=== PATIENT | male | born 1995 | race Hispanic/Latino ===

== ENCOUNTER 2022-03-31 22:34 | Emergency (ER) | payer OTHER, SELFPAY ==
--- OUTSIDE RECORDS SUMMARY | 2022-03-31 22:38 | XMS REPORT | Continuity of Care Document ---
:1995 Author Organization [facility] t Address [address] [place] [address] Care Team Providers Name Role Phone Pcp, Patient Does Not Have A Primary Care Physician [id number] KATHE SALES Attending Clinician Unavailable Kathe Lopez Attending Clinician Unknown, Attending Attending Clinician Unavailable YASMANY PHAM Attending Clinician Unavailable NIDIA BANEGAS Attending Clinician Unavailable Nidia Banegas MD Attending Clinician ANEUDY HERNANDEZ Attending Clinician Unavailable Aneudy Perkins Attending Clinician Doctor Unassigned, [place] Attending Clinician Unavailable Payers Payer Name Policy Type Policy Number Effective Date Expiration Date S sophia [employer] [id number] 2016 00:00:00 Problems Condition Condition Condition Status Onset Resolution Last Treating Co mments Source Name Details Category Date Date Treatment Clinician Date No known No known Disease Unive rs active active ity of problems problems [facility] Allergies, Adverse Reactions, Alerts Allergy Allergy Status Severity Reaction(s) Onset Inactive Treating Comm ents Source Name Type Date Date Clinician NO KNOWN Drug Active Univers ALLERGIE Class ity of S [facility] Social History Social Habit Start Date Stop Date Quantity Comments Source Exposure to 2022-03-18 2022-03-28 Not sure [facility]-CoV-2 00:00:00 17:41:00 [facility] [place] Alcohol intake 2022-03-28 2022-03-28 0 /d [facility] 00:00:00 00:00:00 [facility] Tobacco use and 2022-03-08 2022-03-08 Smokeless tobacco Un iversity of exposure 00:00:00 00:00:00 non-user [facility] Sex Assigned At [birth year] Universit y of 00:00:00 00:00:00 [facility] Smoking Status Start Date Stop Date Source Never smoked tobacco [facility] Medications Ordered Filled Start Stop Current Ordering Indication Dosage Frequency Signature Comments Components Source Medication Medication Date Date Medication? Clinician (SIG) Name Name levoFLOXaci 2021-04- Yes [id number] 500mg Take 1 Univers n 500 mg 05-29 tablet by ity o f tablet 00:00: 05:59 mouth in [place] 00 :00 the [facility] for 10 days. cefTRIAXone 2021-04- No [id number] 500mg Univers (ROCEPHIN) 05-09 ity of injection 20:15: 19:33 [place] 500 mg 00 :00 [facility] cefTRIAXone 2021-04- No [id number] 500mg 500 mg, Univers (ROCEPHIN) 05-09 Intramuscu it y of injection 20:15: 19:33 [place], ONCE, [place] 500 mg 00 :00 1 dose, On [facility] Branch 03/08/22 at 1415, JOHN
Re ason for Anti-Infec tive: Empiric Therapy for Suspected Infection< br>Empiric Therapy Site: Urine
D uration of therapy: 5 days doxycycline 2021-04- Yes [id number] 100mg Take 1 Univers hyclate 100 05-09 tablet by it y of mg tablet 00:00: 05:59 mouth in [place] 00 :00 the [facility] and 1 tablet in the evening. Do all this for 10 days. amoxicillin 2021- No [id number] 1{tbl} Take 1 Univers -clavulanat 10-29 tablet by it y of e 00:00: 04:59 mouth in [place] (AUGMENTIN) 00 :00 [facility] 875-125 mg morning Branch per tablet and 1 tablet in the evening. Do all this for 5 days. cephALEXin 2021- No [id number] 500mg Take 1 Univers (KEFLEX) 10-06 [id number] capsule by it y of 500 mg 00:00: 04:59 mouth 4 [place] capsule 00 :00 (four) Medical times Branch daily for 7 days. Immunizations Ordered Immunization Filled Immunization Date Status Commen ts Source Name Name Meningococcal 2016-12-12 Completed University of Polysaccharide 00:00:00 [place] [facility] (groups A, C, Y and Branc h W-135) conjugate vaccine (MCV4P) Meningococcal 2016-12-12 Completed University of Polysaccharide 00:00:00 [place] [facility]ny (groups A, C, Y and Branc h W-135) conjugate vaccine (MCV4P) Meningococcal 2016-12-12 Completed University of Polysaccharide 00:00:00 [place] Med[facility] (groups A, C, Y and Branc h W-135) conjugate vaccine (MCV4P) Meningococcal 2016-12-12 Completed University of Polysaccharide 00:00:00 [place] Med[facility]ny (groups A, C, Y and Branc h W-135) conjugate vaccine (MCV4P) Vital Signs Vital Name Observation Time Observation Value Comments Source Systolic blood 2022-03-28 23:48:00 151 mm[Hg] Univer sity of [place] Diastolic blood 2022-03-28 23:48:00 97 mm[Hg] Unive rsity [facility] Heart rate 2022-03-28 23:46:00 97 /min [facility] Body temperature 2022-03-28 23:46:00 36.5 Sherri [facility] Respiratory rate 2022-03-28 23:46:00 14 /min [facility] Body height 2022-03-28 23:46:00 185.4 cm [facility] Body weight 2022-03-28 23:46:00 88.179 kg [facility] BMI 2022-03-28 23:46:00 25.65 kg/m2 [facility] Oxygen saturation in 2022-03-28 23:46:00 98 /min [facility] Arterial blood by [facility] Pulse oximetry Branch Systolic blood 2022-03-08 19:14:00 155 mm[Hg] Univer sity of [place] Diastolic blood 2022-03-08 19:14:00 96 [facility]Hg[facility] 2022-03-08 19:13:00 68 /min [facility] [place] [facility] Body temperature 2022-03-08 19:13:00 37.11 Sherri [facility] [place] [facility] Respiratory rate 2022-03-08 19:13:00 16 /min [facility] [place] [facility] Body height 2022-03-08 19:13:00 185.4 cm [facility] [place] [facility] Body weight 2022-03-08 19:13:00 89.948 kg [facility] [place] [facility] BMI 2022-03-08 19:13:00 26.16 kg/m2 [facility] [place] [facility] Oxygen saturation in 2022-03-08 19:13:00 100 /min University of Arterial blood by [facility] Pulse oximetry Branch Systolic blood 2021-10-29 21:03:00 151 mm[Hg] Univer sity of [facility] [place] [facility] Diastolic blood 2021-10-29 21:03:00 84 mm[Hg] Unive rsity of [facility] [place] [facility] Heart rate 2021-10-29 21:03:00 74 /min [facility] [place] [facility] Body temperature 2021-10-29 21:03:00 37.17 Sherri [facility] [place] [facility] Respiratory rate 2021-10-29 21:03:00 19 /min [facility] [place] [facility] Body height 2021-10-29 21:03:00 185.4 cm [facility] [place] [facility] Body weight 2021-10-29 21:03:00 92.897 kg [facility] [place] [facility] BMI 2021-10-29 21:03:00 27.02 kg/m2 [facility] [place] [facility] Oxygen saturation in 2021-10-29 21:03:00 98 /min University of Arterial blood by [facility] Pulse oximetry Branch Systolic blood 2021-10-06 19:59:00 111 mm[Hg] Univer sity of [facility] [place] [facility] Diastolic blood 2021-10-06 19:59:00 71 mm[Hg] Unive rsity of [facility] [place] [facility] Heart rate 2021-10-06 19:59:00 82 /min [facility] [place] [facility] Body temperature 2021-10-06 19:59:00 36.72 Sherri [facility] Respiratory rate 2021-10-06 19:59:00 18 /min [facility] Body height 2021-10-06 19:59:00 185.4 cm [facility] Body weight 2021-10-06 19:59:00 92.987 kg [facility] BMI 2021-10-06 19:59:00 27.05 kg/m2 [facility] Oxygen saturation in 2021-10-06 19:59:00 98 /min [facility] Arterial blood by [facility] Pulse oximetry [place] Procedures Procedure Date / Time Performed Performing Clinician Sourc e POCT URINALYSIS 2022-03-08 19:20:00 Allyson Ash [facility] Encounters Start End Encounter Admission Attending Care Care Encounter Source Date/Time Date/Time Type Type Clinicians Facility Department ID 2022-03-28 2022-03-28 [id number] Univers 17:20:00 18:08:59 KATHE [facility] 2022-03-28 2022-03-28 Urgent Kathe Sales [facility] 1..[id number] Univers 17:20:00 18:08:59 Care Unknown, Attending HEALTH [id number] itmeghan slaughter [place] [id number] [place] ODES[place]?BLEA [id number] Fl [address] MEDICAL OFFICE BUILDING 2022-03-15 2022-03-15 [id number] Univers 09:40:00 09:40:00 YASMANY [facility] 2022-03-08 2022-03-08 [facility] [id number] Univers 13:00:00 13:40:59 NIDIA [facility] 2022-03-08 2022-03-08 Urgent Nidia Banegas [facility] [id number] Univers 13:00:00 13:20:00 Care Unknown, Attending [facility] 350..13.10 ity of [place] [id number] [place]?BLEA [id number] [address] MEDICAL OFFICE [facility] 2021-10-29 2021-10-29 Outpatient R [facility] [id number] Univers 16:00:00 16:26:10 ANEUDY palencia [facility] 2021-10-29 2021-10-[address] [facility] [id number] Univers 16:00:00 16:26:10 Care [facility] [id number] ity of [place] [id number] [place]?BLEA [id number] [address] OFFICE [facility] 2021-10-06 2021-10-[address] [facility] [id number] Univers 15:00:00 15:25:36 Care [facility] [id number] ity of [place] [id number] [place]?BLEA [id number] [address] OFFICE [facility] 2021-10-06 2021-10-06 Outpatient R [facility] [id number] Univers 15:00:00 15:25:36 ANEUDY palencia [facility] 2021-10-06 2021-10-06 Orders Doctor YAMILET [id number] Univers 00:00:00 00:00:00 Only Unassigned, LISA [id number] ity of [place] [facility] [id number] [place] [id number] [address] Results Test Description Test Time Test Comments Results Result Comments Source POCT URINALYSIS W SPECIFIC GRAVITY 2022-03-08 19:21:00 Test Item Value Reference Range Interpretation Comme nts POCT U SP GRAV (test code = 3255) 1.000 mg/dl 1.005-1.025 A POCT PH U (test code = 3254) 7 mg/dl 5-8 POCT U LEUK EST (test code = 3263) Neg Negative - Negative POCT U NIT (test code = 3262) Neg Negative - Negative POCT U PROT (test code = 3259) Neg Negative - Negative POCT U GLU (test code = 3256) Neg Negative - Negative POCT U KETONE (test code = 3258) Neg Negative - Negative POCT U UROBILI (test code = 3260) Neg 0.2-1 POCT U BILI (test code = 3261) Neg Negative - Negative POCT U BLD (test code = 3257) Neg Negative - Negative POCT U COLOR (test code = 3266) Yellow POCT U APPEAR (test code = 3267) Clear Lab Interpretation (test code = 92900-0) Abnormal [facility]
--- NOTE | 2022-04-01 00:04 | EDPHYS ---
Physician Documentation [facility] Name: Rudy Daily Age: 26 yrs Sex: Male : 1995 Arrival Date: 03/31/2022 Time: 22:38 Bed 8 Private MD: ED Physician Ottoniel Newman HPI: 03/31 22:53 This 26 yrs old Male presents to ER via Ambulatory with complaints of jmm Testicular Pain. 22:53 The patient presents with scrotal pain. Onset: The symptoms/episode began/occurred jmm gradually, 1 month(s) ago. Is a 26-year-old male with no chronic medical conditions presents emerged part with complaints of scrotal pain beginning approximately a month ago. Patient states he has visited urgent care twice. Patient states he was prescribed antibiotics but unable to keep them down due to nausea. Patient was given psych prescription for levofloxacin patient has been able to hold down but still continues to have right scrotal pain and was advised to go to the ED for further evaluation.. Historical: - Allergies: 23:04 No Known Allergies; as6 - Home Meds: 23:04 None [Active]; as6 - PMHx: 23:04 None; as6 - PSHx: 23:04 None; as6 - Immunization history:: Client reports having NOT received the Covid vaccine. - Social history:: Smoking status: Patient reports the use of cigarette tobacco products. ROS: 22:53 Constitutional: Negative for fever, chills, and weight loss, Cardiovascular: Negative jmm for chest pain, palpitations, and edema, Respiratory: Negative for shortness of breath, cough, wheezing, and pleuritic chest pain. 22:53 : Positive for pelvic pain, testicular pain 22:53 All other systems are negative. Exam: 22:53 Constitutional: This is a well developed, well nourished patient who is awake, alert, jmm and in no acute distress. Head/Face: atraumatic. Eyes: EOMI, no conjunctival erythema appreciated ENT: Moist Mucus Membranes Neck: Trachea midline, Supple Chest/axilla: Normal chest wall appearance and motion. Cardiovascular: Regular rate and rhythm. No edema appreciated Respiratory: Normal respirations, no respiratory distress appreciated Abdomen/GI: Non distended Back: Normal ROM Skin: General appearance color normal 22:53 Neuro: Awake and alert Psych: Behavior is normal, Mood is normal, Patient is cooperative and pleasant 22:53 : Male external genitalia: tenderness, of the right testicle is noted, that is mild. Vital Signs: 23:02 BP 158 / 94; Pulse 95; Resp 20 S; Temp 98.2(O); Pulse Ox 100% on R/A; Weight 88.45 kg as6 (R); Height 6 ft. 1 in. (185.42 cm) (R); Pain 8/10; 04/01 00:13 BP 141 / 88; Pulse 81; Resp 18 S; Pulse Ox 100% on R/A; as6 03/31 23:02 Body Mass Index 25.73 (88.45 kg, 185.42 cm) as6 MDM: 03/31 22:53 Patient medically screened. [facility] 04/01 00:02 Data reviewed: vital signs, nurses notes. Counseling: I had a detailed discussion with amber the patient and/or guardian regarding: the historical points, exam findings, and any diagnostic results supporting the discharge/admit diagnosis, radiology results, the need for outpatient follow up, to return to the emergency department if symptoms worsen or persist or if there are any questions or concerns that arise at home. ED course: Ultrasounds negative. Patient encouraged to continue oral antibiotics and otherwise advised follow-up with urology or PCP. Patient otherwise given strict return precautions. Patient understood agrees plan of care.. 03/31 22:54 Order name: US Scrotum Testicles jose luis Administered Medications: No medications were administered Disposition Summary: 04/01/22 00:03 Discharge Ordered Location: Home [facility] Condition: Stable [facility] Diagnosis - Scrotal pain [facility] Followup: [facility] - With: Shaun Luna MD - When: 2 - 3 days - Reason: Recheck today's complaints, Continuance of care, Re-evaluation by your physician Discharge Instructions: - Discharge Summary Sheet [facility] - Testicular Self-Exam [facility] Forms: - Medication Reconciliation Form [facility] - Thank You Letter [facility] - Antibiotic Education [facility] - Prescription Opioid Use [facility] Signatures: Dispatcher [employer] EDMS Alexis Smart PA PA jmm Slawson, Ashby, RN RN as6
--- NOTE | 2022-04-01 00:04 | ER ---
Nurse's Notes [facility] Name: Rudy Daily Age: 26 yrs Sex: Male : 1995 Arrival Date: 03/31/2022 Time: 22:38 Bed 8 Private MD: Diagnosis: Scrotal pain Presentation: 03/31 22:46 Acuity: CLAUDIA 2 tw5 22:59 Chief complaint: Patient states: I have been having testicular pain since a month ago. ha1 I went to an urgent clinic and was tested for STIs but everything was negative. four days ago I went back to the urgent care because I was still feeling testicular pain and got antibiotics. Coronavirus screen: Vaccine status: Patient reports being unvaccinated. Ebola Screen: No symptoms or risks identified at this time. 22:59 Method Of Arrival: Ambulatory ha1 23:02 Coronavirus screen: At this time, the client does not indicate any symptoms associated as6 with coronavirus-19. Ebola Screen: No symptoms or risks identified at this time. Initial Sepsis Screen: Does the patient meet any 2 criteria? No. Patient's initial sepsis screen is negative. Does the patient have a suspected source of infection? No. Patient's initial sepsis screen is negative. Risk Assessment: Do you want to hurt yourself or someone else? Patient reports no desire to harm self or others. Onset of symptoms is unknown. 23:02 Method Of Arrival: Ambulatory as6 Historical: - Allergies: 23:04 No Known Allergies; as6 - Home Meds: 23:04 None [Active]; as6 - PMHx: 23:04 None; as6 - PSHx: 23:04 None; as6 - Immunization history:: Client reports having NOT received the Covid vaccine. - Social history:: Smoking status: Patient reports the use of cigarette tobacco products. Screenin/30 00:14 [facility] ED Fall Risk Assessment (Adult) Score/Fall Risk Level 0 - 2 = Low Risk. Abuse as6 screen: Denies threats or abuse. Denies injuries from another. Nutritional screening: No deficits noted. Tuberculosis screening: No symptoms or risk factors identified. Assessment: 00:13 General: Appears uncomfortable, Behavior is calm, cooperative. Pain: Complains of pain as6 in right testicle. Neuro: Level of Consciousness is awake, alert, obeys commands, Oriented to person, place, time, situation. Cardiovascular: Capillary refill < 3 seconds Patient's skin is warm and dry. Respiratory: Respiratory effort is even, unlabored. : Reports pain in right testicle. Vital Signs: 03/31 23:02 BP 158 / 94; Pulse 95; Resp 20 S; Temp 98.2(O); Pulse Ox 100% on R/A; Weight 88.45 kg as6 (R); Height 6 ft. 1 in. (185.42 cm) (R); Pain 8/10; 04/01 00:13 BP 141 / 88; Pulse 81; Resp 18 S; Pulse Ox 100% on R/A; as6 03/31 23:02 Body Mass Index 25.73 (88.45 kg, 185.42 cm) as6 ED Course: 03/31 22:38 Patient arrived in ED. 22:42 Alexis Smart PA is PHCP. [facility] 22:42 Ottoniel Newman MD is Attending Physician. [facility] 22:46 Triage completed. tw5 23:04 Arm band placed on. as6 23:04 Bed in low position. Call light in reach. as6 23:25 Jaziel Tatum, RN is Primary Nurse. as6 04/01 00:03 Shaun Luna MD is Referral Physician. [facility] 00:08 Scrotum Testicles In Process Unspecified. EDMS 00:14 No provider procedures requiring assistance completed. Patient did not have IV access as6 during this emergency room visit. Administered Medications: No medications were administered Medication: 00:14 VIS not applicable for this client. as6 Outcome: 00:03 Discharge ordered by . jm 00:14 Discharged to home ambulatory. as6 00:14 Condition: stable 00:14 Discharge instructions given to patient, Instructed on discharge instructions, follow up and referral plans. 00:14 Demonstrated understanding of instructions, follow-up care. 00:14 Patient left the ED. as6 Signatures: Dispatcher [employer] EDMS Alexis Smart PA PA Ria Ji Tiffany tw5 Jaziel Tatum, RN RN as6 Malia Larsen RN RN ha1 Corrections: (The following items were deleted from the chart) 03/31 23:05 23:02 Onset of symptoms was March 31, 2022 as6 as6 23:25 23:02 BP 158 / 94; Pulse 20bpm; Resp 95bpm; Spontaneous; Pulse Ox 100% RA; Temp 98.2F as6 Oral; 88.45 kg Reported; Height 6 ft. 1 in. Reported; BMI: 25.7; Pain 8/10; as6
[2022-04-01 00:20] VITALS: TEMP 98.2; O2SAT 100
[2022-04-01 00:22] VITALS: BP 141/88
--- NOTE | 2022-04-01 15:01 | RAD REPORT ---
EXAM DESCRIPTION: US - Scrotum Testicles - 04/01/2022 12:02 am CLINICAL HISTORY: Right testicular pain TECHNIQUE: Real-time ultrasound of the scrotum with color Doppler and image documentation. COMPARISON: No relevant prior studies available. FINDINGS: Right testicle: The right testis measures 4.2 x 2.3 x 3.2 cm. Homogeneous echotexture. No torsion. Left testicle: The left testis measures 4.2 x 2.1 x 3.6 cm. Homogeneous echotexture. No torsion . Epididymides: Unremarkable. Scrotum: Unremarkable. IMPRESSION: Normal testicular flow bilaterally without sonographic evidence for torsion. Electronically signed by: Heena Vieyra MD 04/01/2022 12:35 AM ECHOCARDIOGRAPH TECH Due to temporary technical issues with the PACS/Fluency reporting system, reports are being signed by the in house radiologists without review as a courtesy to insure prompt reporting. The interpreting radiologist is fully responsible for the content of the report.
== END 2022-04-01 00:14 | disposition home or self-care (01) ==
LOC: ER 22:34
DX: N50.82 Scrotal pain (principal)
CPT/HCPCS: 76870; 99283

== ENCOUNTER 2022-09-27 14:11 | Emergency (ER) | payer OTHER, SELFPAY ==
--- OUTSIDE RECORDS SUMMARY | 2022-09-27 14:15 | XMS REPORT | Continuity of Care Document ---
:1995 Author Organization [facility] t Address [address] [place] [address] [address] [place] [address] Care Team Providers Name Role Phone KATLYN FIGUEROA Primary Care Physician Unavailable KATLYN FIGUEROA Attending Clinician Unavailable Katlyn Colón Attending Clinician NIDIA ROMERO Attending Clinician Unavailable Nidia Romero MD Attending Clinician Unknown, Attending Attending Clinician Unavailable Lab, Ang - Db Attending Clinician Unavailable PANKAJ GORMAN Attending Clinician Unavailable Pankaj Gorman MD Attending Clinician KATHE PASTOR Attending Clinician Unavailable Kathe Lopez Attending Clinician YASMANY PHAM Attending Clinician Unavailable ANEUDY HERNANDEZ Attending Clinician Unavailable Aneudy Perkins Attending Clinician Doctor Unassigned, [place] Attending Clinician Unavailable PANKAJ GORMAN Admitting Clinician Unavailable KATLYN FIGUEROA Admitting Clinician Unavailable Payers Payer Name Policy Type Policy Number Effective Date Expiration Date S [facility] [id number] 2022 SELECT 00:00:00 Problems Condition Condition Condition Status Onset Resolution Last Treating Co mments Source Name Details Category Date Date Treatment Clinician Date Anxiety Anxiety Disease Active Univers and and 3-10 [place] Elevated Elevated Disease Active Unive rs blood blood 3-10 ity of pressure pressure 00:00: [place] reading in reading in 00 Id dical office office Branch without without diagnosis diagnosis of of hypertensi hypertensi on on Cloudy Cloudy Disease Active Univers urine urine 3-10 ity of 00:: Medical Branch 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 cyst 3-10 ity of :: [facility] Pain in Pain in Disease Active Univers right right 1-09 ity of testicle testicle 00:: [facility] Branch Epididymit Epididymit Disease Active U nivers is is 1-09 ity of 00:: [place] [facility] No known No known Disease Unive rs active active ity of problems problems [facility] Allergies, Adverse Reactions, Alerts Allergy Allergy Status Severity Reaction(s) Onset Inactive Treating Comm ents Source Name Type Date Date Clinician NO KNOWN Drug Active Univers ALLERGIE Class ity of S [facility] Social History Social Habit Start Date Stop Date Quantity Comments Source Exposure to 2022-06-11 2022-06-21 Not sure [facility] SARS-CoV-2 00:00:00 11:23:00 [facility] (event) [place] Alcohol intake 2022-06-21 2022-06-21 0 /d [facility] 00:00:00 00:00:00 [facility] Tobacco use and 2022-03-08 2022-03-08 Smokeless tobacco Un iversity of exposure 00:00:00 00:00:00 non-user [facility] Sex Assigned At [birth year] [facility] y of 00:00:00 00:00:00 [facility] Smoking Status Start Date Stop Date Source Never smoked tobacco [facility] Medications Ordered Filled Start Stop Current Ordering Indication Dosage Frequency Signature Comments Components Source Medication Medication Date Date Medication? Clinician (SIG) Name Name ibuprofen Yes [id number] 600mg Take 1 Univers 600 mg 3-21 tablet by ity of tablet 00:00: mouth [place] every 6 Medical (six) Branch hours as needed for Pain (scale 1-3) or Pain (scale 4-6). ibuprofen Yes [id number] 600mg Take 1 Univers 600 mg 3-21 tablet by ity of tablet 00:00: mouth [place] every 6 Medical (six) Branch hours as needed for Pain (scale 1-3) or Pain (scale 4-6). buPROPion Yes [id number] 150 mg U nivers SR 3-10 daily for ity of (WELLBUTRIN 00:00: 3 [place] SR[place] 150 mg 00 then Medical SR tablet increase Branch to BID buPROPion Yes [id number] 150 mg U nivers SR 3-10 daily for ity of (WELLBUTRIN 00:00: [place] 150 mg 00 then Medical SR tablet increase Branch to BID buPROPion Yes [id number] 150 mg U nivers SR 3-10 daily for ity of (WELLBUTRIN 00:00: 3 [place] SR[place] 150 mg 00 then Medical SR tablet increase Branch to BID buPROPion Yes [id number] 150 mg U nivers SR 3-10 daily for ity of (WELLBUTRIN 00:00: 3 [place] SR[place] 150 mg 00 then Medical SR tablet increase Branch to BID buPROPion Yes [id number] 150 mg U nivers SR 3-10 daily for ity of (WELLBUTRIN 00:00: 3 [place] SR[place] 150 mg 00 then Medical SR tablet increase Branch to BID busPIRone 2022- No [id number] 10mg Take 1 Univers 10 mg 3-10 04-10 tablet by ity of tablet 00:00: 04:59 mouth 2 [place] 00 :00 (two) Medical times Branch daily as needed (anxiety) for up to 30 days. busPIRone 2022- No [id number] 10mg Take 1 Univers 10 mg 3-10 04-10 tablet by ity of tablet 00:00: 04:59 mouth 2 [place] 00 :00 (two) Medical times Branch daily as needed (anxiety) for up to 30 days. busPIRone 2022- No [id number] 10mg Take 1 Univers 10 mg 3-10 04-10 tablet by ity of tablet 00:00: 04:59 mouth 2 [place] 00 :00 (two) Medical times Branch daily as needed (anxiety) for up to 30 days. busPIRone 2022- No [id number] 10mg Take 1 Univers 10 mg 3-10 04-10 tablet by ity of tablet 00:00: 04:59 mouth 2 [place] 00 :00 (two) Medical times Branch daily as needed (anxiety) for up to 30 days. busPIRone 2022- No [id number] 10mg Take 1 Univers 10 mg 3-10 tablet by ity of tablet 00:00: 04:59 mouth 2 [place] 00 :00 (two) Medical times Branch daily as needed (anxiety) for up to 30 days. clotrimazol 2022- No [id number] Apply to [facility] e-betametha 05-17 area(s) 2 it y of sone cream 00:00: 05:59 (two) [place] 00 :00 times Medical daily for Branch 5 days. No known No No known Unive rs medications -19 medication it y of 14:50: s [address] No known No No known Unive rs medications - medication it y of 14:50: s [address] No known No No known Unive rs medications -19 medication it y of 14:50: [address] No known 2022- No No known Unive rs medications -09 medication it y of 13:31: s [address] No known No No known Unive rs medications -09 medication it y of 13:31: s [address] No known 2022-0 No No known Unive rs medications -09 medication it y of 13:31: s [address] No known 2021-04 No No known Unive rs medications - medication it y of 17:55: s [address] levoFLOXaci 2021-04- No [id number] 500mg Take 1 Univers n 500 mg 05-29 tablet by ity o f tablet 00:00: 05:59 mouth in [place] 00 :00 the Medical morning Branch for 10 days. cefTRIAXone 2021-04- No [id number] 500mg Univers (ROCEPHIN) 05-09 ity of injection 20:15: 19:33 [place] 500 mg 00 :00 Medical Branch cefTRIAXone 2021-04- No [id number] 500mg 500 mg, Univers (ROCEPHIN) 05-09 Intramuscu it y of injection 20:15: 19:33 [place], ONCE, [place] 500 mg 00 :00 1 dose, On Medical Tue Branch 03/08/22 at 1415, JOHN
Re ason for Anti-Infec tive: Empiric Therapy for Suspected Infection< br>Empiric Therapy Site: Urine
D uration of therapy: 5 days doxycycline 2021-04- No [id number] 100mg Take 1 Univers hyclate 100 05-09 tablet by it y of mg tablet 00:00: 05:59 mouth in [place] 00 :00 the Medical morning Branch and 1 tablet in the evening. Do all this for 10 days. amoxicillin 2021- No [id number] 1{tbl} Take 1 Univers -clavulanat 10-29 tablet by it y of e 00:00: 04:59 mouth in [place] (AUGMENTIN) 00 :00 the Medical 875-125 mg morning Branch per tablet and 1 tablet in the evening. Do all this for 5 days. cephALEXin 2021- No [id number] 500mg Take 1 Univers (KEFLEX) 10-06 [id number] capsule by it y of 500 mg 00:00: 04:59 mouth 4 [place] capsule 00 :00 (four) Medical times Branch daily for 7 days. Immunizations Ordered Immunization Filled Immunization Date Status Commen ts Source Name Name Meningococcal 2016-12-12 Completed University of Polysaccharide 00:00:00 [facility] benny (groups A, C, Y and Branc h W-135) conjugate vaccine (MCV4P) Meningococcal 2016-12-12 Completed University of Polysaccharide 00:00:00 [facility] benny (groups A, C, Y and Branc h W-135) conjugate vaccine (MCV4P) Meningococcal 2016-12-12 Completed University of Polysaccharide 00:00:00 [facility] benny (groups A, C, Y and Branc h W-135) conjugate vaccine (MCV4P) Meningococcal 2016-12-12 Completed University of Polysaccharide 00:00:00 [facility] benny (groups A, C, Y and Branc h W-135) conjugate vaccine (MCV4P) Meningococcal 2016-12-12 Completed University of Polysaccharide 00:00:00 [facility] benny (groups A, C, Y and Branc [...] Meningococcal 2016-12-12 Completed University of Polysaccharide 00:00:00 [facility] benny (groups A, C, Y and Branc h W-135) conjugate vaccine (MCV4P) Meningococcal 2016-12-12 Completed University of Polysaccharide 00:00:00 [facility] benny (groups A, C, Y and Branc h W-135) conjugate vaccine (MCV4P) Meningococcal 2016-12-12 Completed University of Polysaccharide 00:00:00 [facility] benny (groups A, C, Y and Branc h W-135) conjugate vaccine (MCV4P) Vital Signs Vital Name Observation Time Observation Value Comments Source Systolic blood 2022-06-21 16:32:00 148 mm[Hg] Univer sity of pressure [facility] Diastolic blood 2022-06-21 16:32:00 110 mm[Hg] Unive rsity of [facility] Heart rate 2022-06-21 16:31:00 96 /min [facility] Body temperature 2022-06-21 16:31:00 36.67 Sherri [facility] Respiratory rate 2022-06-21 16:31:00 15 /min [facility] Body height 2022-06-21 16:31:00 182.9 cm [facility] Body weight 2022-06-21 16:31:00 91.037 kg [facility] BMI 2022-06-21 16:31:00 27.22 kg/m2 [facility] Oxygen saturation in 2022-06-21 16:31:00 99 /min [facility] Arterial blood by [facility] Pulse oximetry Branch Systolic blood 2022-06-10 17:13:00 149 mm[Hg] Univer sity of pressure [facility] Diastolic blood 2022-06-10 17:13:00 89 mm[Hg] Unive rsity of [facility] Heart rate 2022-06-10 17:12:00 74 /min [facility] Body temperature 2022-06-10 17:12:[address] [facility] 2022-06-10 17:12:00 182.9 cm Universi ty of [place] [facility] Body weight 2022-06-10 17:12:00 90.674 kg Universi ty of [place] [facility] BMI 2022-06-10 17:12:00 27.11 kg/m2 Universi ty of [place] [facility] Oxygen saturation in 2022-06-10 17:12:00 98 /min University of Arterial blood by [facility] Pulse oximetry Branch Systolic blood 2022-04-20 19:23:00 151 mm[Hg] Univer sity of pressure [place] [facility] Diastolic blood 2022-04-20 19:23:00 91 mm[Hg] Unive rsity of pressure [place] [facility] Heart rate 2022-04-20 19:23:00 93 /min Universi ty of [place] [facility] Body temperature 2022-04-20 19:23:00 37.78 Sherri Univ ersity of [place] [facility] Respiratory rate 2022-04-20 19:23:00 18 /min Univ ersity of [place] [facility] Body height 2022-04-20 19:23:00 182.9 cm Universi ty of [place] [facility] Body weight 2022-04-20 19:23:00 87.907 kg Universi ty of [place] [facility] BMI 2022-04-20 19:23:00 26.28 kg/m2 Universi ty of [place] [facility] Oxygen saturation in 2022-04-20 19:23:00 100 /min University of Arterial blood by [facility] Pulse oximetry Branch Systolic blood 2022-04-11 19:32:00 155 mm[Hg] Univer sity of pressure [place] [facility] Diastolic blood 2022-04-11 19:32:00 76 mm[Hg] Unive rsity of pressure [place] [facility] Heart rate 2022-04-11 19:31:00 79 /min Universi ty of [place] [facility] Body temperature 2022-04-11 19:31:00 36.67 Sherri Univ ersity of [place] [facility] Body height 2022-04-11 19:31:00 182.9 cm Universi ty of [place] [facility] Body weight 2022-04-11 19:31:00 87.091 kg Universi ty of [place] [facility] BMI 2022-04-11 19:31:00 26.04 kg/m2 Universi ty of [place] [facility] Oxygen saturation in 2022-04-11 19:31:00 99 /min University of Arterial blood by [place] [facility] benny Pulse oximetry Branch Systolic blood 2022-03-28 23:48:00 151 mm[Hg] Univer sity of pressure [place] [facility] Diastolic blood 2022-03-28 23:48:00 97 mm[Hg] Unive rsity of pressure [place] [facility] Heart rate 2022-03-28 23:46:00 97 /min Universi ty of [place] [facility] Body temperature 2022-03-28 23:46:00 36.5 Sherri Univ ersity of [place] [facility] Respiratory rate 2022-03-28 23:46:00 14 /min Univ ersity of [place] [facility] Body height 2022-03-28 23:46:00 185.4 cm Universi ty of [place] [facility] Body weight 2022-03-28 23:46:00 88.179 kg Universi ty of [place] [facility] BMI 2022-03-28 23:46:00 25.65 kg/m2 Universi ty of [place] [facility] Oxygen saturation in 2022-03-28 23:46:00 98 /min University of Arterial blood by [place] Medi benny Pulse oximetry Branch Systolic blood 2022-03-08 19:14:00 155 mm[Hg] Univer sity of pressure [place] [facility] Diastolic blood 2022-03-08 19:14:00 96 mm[Hg] Unive rsity of pressure [place] [facility] Heart rate 2022-03-08 19:13:00 68 /min Universi ty of [place] [facility] Body temperature 2022-03-08 19:13:00 37.11 Shreri Univ ersity of [place] [facility] Respiratory rate 2022-03-08 19:13:00 16 /min Univ ersity of [place] [facility] Body height 2022-03-08 19:13:00 185.4 cm Universi ty of [place] [facility] Body weight 2022-03-08 19:13:00 89.948 kg Universi ty of [place] [facility] BMI 2022-03-08 19:13:00 26.16 kg/m2 Universi ty of [place] [facility] Oxygen saturation in 2022-03-08 19:13:00 100 /min University of Arterial blood by [place] Medi benny Pulse oximetry Branch Systolic blood 2021-10-29 21:03:00 151 mm[Hg] Univer sity of pressure [place] [facility] Diastolic blood 2021-10-29 21:03:00 84 mm[Hg] Unive rsity of pressure [place] [facility] Heart rate 2021-10-29 21:03:00 74 /min Universi ty of [place] [facility] Body temperature 2021-10-29 21:03:00 37.17 Sherri Univ ersity of [place] [facility] Respiratory rate 2021-10-29 21:03:00 19 /min Univ ersity of [place] [facility] Body height 2021-10-29 21:03:00 185.4 cm Universi ty [facility] [place] [facility] Body weight 2021-10-29 21:03:00 92.897 kg Universi ty of [place] [facility] BMI 2021-10-29 21:03:00 27.02 kg/m2 Universi ty of [place] [facility] Oxygen saturation in 2021-10-29 21:03:00 98 /min University of Arterial blood by [facility] Pulse oximetry Branch Systolic blood 2021-10-06 19:59:00 111 mm[Hg] Univer sity of pressure [place] [facility] Diastolic blood 2021-10-06 19:59:00 71 mm[Hg] Unive rsity of pressure [place] [facility] Heart rate 2021-10-06 19:59:00 82 /min Universi ty of [place] [facility] Body temperature 2021-10-06 19:59:00 36.72 Sherri Univ ersity of [place] [facility] Respiratory rate 2021-10-06 19:59:00 18 /min Univ ersity of [place] [facility] Body height 2021-10-06 19:59:00 185.4 cm Universi ty [facility] [place] [facility] Body weight 2021-10-06 19:59:00 92.987 kg Universi ty [facility] [place] [facility] BMI 2021-10-06 19:59:00 27.05 kg/m2 Universi ty of [place] [facility] Oxygen saturation in 2021-10-06 19:59:00 98 /min University of Arterial blood by [facility] Pulse oximetry Branch Procedures Procedure Date / Time Performed Performing Clinician Sour e POCT URINALYSIS 2022-06-10 17:50:00 Katlyn Figueroa [facility] US SCROTUM AND 2022-04-19 18:09:22 Katlyn Figueroa [facility] POCT URINALYSIS 2022-03-08 19:20:[address] [facility] Encounters Start End Encounter Admission Attending Care Care Encounter Source Date/Time Date/Time Type Type Clinicians Facility Department ID 2022-07-04 Outpatient [facility] [id number] Common 14:36:02 [id number] [facility] 2022-06-30 Outpatient [facility] [id number] Common 08:42:03 [id number] [facility] 2022-07-22 2022-07-22 [facility] [id number] Univers 11:00:00 11:00:00 KATLYN abidameghan [facility] 2022-07-05 2022-07-05 [facility] [id number] Univers 00:00:00 00:00:00 Secure Msg [facility] [id number] ity of [place] 4.2.7.2.686 [place] ODES[place]?BLEA [id number] [facility] [address] [place] MEDICAL OFFICE [facility] 2022-06-21 2022-06-[address] [facility] [id number] Univers 11:40:00 11:42:32 NIDIA abidameghan [facility] 2022-06-21 2022-06-21 Urgent Nidia Romero [facility] 1.2.840.114 [id number] Univers 11:40:00 11:42:32 Care Unknown, Attending HEALTH 350.1.13.10 ity of [place] 4.2.7.2.686 [place] ODES[place]?BLEA [id number] [facility] [address] [place] MEDICAL OFFICE BUILDING 2022-06-10 2022-06-10 Pilot Can Router Lab, Ang - Db [facility] 1.2.840.1 [id number] Univers 12:00:00 12:15:00 Visit Gwendolynrian Katlyn [facility] [id number] ity of [place] 4.2.7.2.686 [place]?BLEA [id number] [facility] [address] [facility] OFFICE BUILDING 2022-06-10 2022-06-10 [facility] [id number] Univers 11:30:00 11:46:51 KATLYN augustin [facility] 2022-06-10 2022-06-10 Office Henry [facility] [id number] Univers 11:30:00 11:46:51 Visit Katlyn [place] 350.1.13.10 it [facility] 4.2.7.2.686 [place]?BLEA [id number] [facility] [address] [facility] OFFICE [facility] 2022-05-20 2022-05-20 Pilot Can Router Lab, Ang - Db [facility] 1.2.840.1 [id number] Univers 12:30:00 12:45:00 Visit Katlyn Figueroa 350.1.13.10 ity of [place] 4.2.7.2.686 [place] ODES[place]?BLEA [id number] [facility] [address] [facility] OFFICE [facility] 2022-05-20 2022-05-20 [facility] [id number] Univers 12:30:00 12:30:00 KATLYN augustin [facility] 2022-05-17 2022-05-17 [facility] [id number] Univers 11:30:00 11:37:19 PANKAJROXANE augustin [facility] 2022-05-04 2022-05-04 Telephone Henry [facility] [id number] Univers 00:00:00 00:00:00 Katlyn [place] 350.1.13.10 it y of [place] 4.2.7.2.686 [place]?BLEA [id number] [address] OFFICE [facility] 2022-04-28 2022-04-28 Outpatient [facility] [id number] Univers 08:58:03 23:59:00 PANKAJ itmeghan [facility] 2022-04-28 2022-04-28 [facility] [id number] Univers 08:58:03 23:59:00 Encounter Pankaj [place] 350.1.13.10 ity of [place] 4[place]2.7.2.686 [place] [id number] [address] 2022-04-20 2022-04-20 [facility] [id number] Univers 13:00:00 14:29:15 PANKAJ augustin [facility] 2022-04-20 2022-04-20 Office [facility] 1.2.840.114 [id number] Univers 13:00:00 14:29:15 Visit Pankaj ZUÑIGA 350.1.13.10 i ty [facility] 4.2.7.2.686 [place] [facility] [id number] Id dicharish PAUL [address] [facility] 2022-04-19 2022-04-19 Outpatient [facility] [id number] Univers 11:24:50 23:59:00 KATLYN augustin [facility] 2022-04-19 2022-04-19 Hospital [facility] [id number] Univers 11:24:50 23:59:00 Encounter Katlyn ZUÑIGA 350.1.13.10 ity [facility] 4.2.7.2.686 [facility] [id number] [facility] [address] [place] 2022-04-15 2022-04-15 Outpatient [facility] [id number] Univers 00:00:00 00:00:00 KATLYN augustin [facility] 2022-04-11 2022-04-11 Outpatient [facility] [id number] Univers 13:00:00 14:15:18 KATLYN augustin [facility] 2022-04-11 2022-04-11 Office [facility] 1.2.840.114 [id number] Univers 13:00:00 14:15:18 Visit Katlyn [facility] 350.1.13.10 it [facility] 4.2.7.2.686 [place]?BLEA [id number] Id dical DOMITILAEY [address] [place] MEDICAL OFFICE BUILDING 2022-03-28 2022-03-28 [facility] [id number] Univers 17:20:00 18:08:59 REEMaríaU demetria [facility] 2022-03-28 2022-03-28 Urgent Kathe Pastor [facility] 1.2.840.11 [id number] Univers 17:20:00 18:08:59 Care Unknown, Attending HEALTH 350.1.13.10 ity of [place] 4.2.7.2.686 [place]?BLEA [id number] [address] MEDICAL OFFICE [facility] 2022-03-15 2022-03-15 [facility] [id number] Univers 09:40:00 09:40:00 YASMANY ity [facility] 2022-03-08 2022-03-08 [facility] [id number] Univers 13:00:00 13:40:59 NIDIA ity [facility] 2022-03-08 2022-03-08 Urgent Nick [facility] 1.2.840.114 [id number] Univers 13:00:00 13:20:00 Care Unknown, [facility] HEALTH 350..13.10 ity [facility] 4.2.7.2.686 [place]?BLEA [id number] [address] OFFICE [facility] 2022-03-08 2022-03-08 Letter [facility] 1.2.840.114 [id number] Univers 00:00:00 00:00:00 (Out) [place] [id number] it y [facility] 4.2.7.2.686 [place]?BLEA [id number] [address] OFFICE [facility] 2021-10-29 2021-10-29 Outpatient [facility] [id number] Univers 16:00:00 16:26:10 ANEUDY augustin o f [facility] 2021-10-29 2021-10-29 Urgent [facility] 1.2.840.114 [id number] Univers 16:00:00 16:26:10 Care [address]y [facility] 350..13.10 ity [facility] 4.2.7.2.686 [place]DES[place]?BLEA [id number] [address] OFFICE [facility] 2021-10-06 2021-10-06 Urgent [facility] 1.2.840.114 [id number] Univers 15:00:00 15:25:36 Care Aneudy [facility] 350.1.13.10 ity of [place] 4.2.7.2.686 [place] ODESSA?BLEA [id number] Id dical [address] MEDICAL OFFICE BUILDING 2021-10-06 2021-10-06 Outpatient [facility] [id number] Univers 15:00:00 15:25:36 ANEUDY ity o f [facility] 2021-10-06 2021-10-06 Orders Doctor YAMILET 1.2.840.114 [id number] Univers 00:00:00 00:00:00 Only Unassigned, LISA 350.1.13.10 ity of [place] [facility] 4.2.7.2.686 [place] [id number] [address] Results Test Description Test Time Test Comments Results Result Comments Source POCT URINALYSIS W SPECIFIC GRAVITY 2022-06-10 17:51:00 Test Item Value Reference Range Interpretation Comme nts POCT U SP GRAV (test code = 3255) 1.005 mg/dl 1.005-1.025 POCT PH U (test code = 3254) 8 mg/dl 5-8 POCT U LEUK EST (test code = 3263) Negative Negative - Negative POCT U NIT (test code = 3262) Negative Negative - Negative POCT U PROT (test code = 3259) Negative Negative - Negative POCT U GLU (test code = 3256) Negative Negative - Negative POCT U KETONE (test code = 3258) Negative Negative - Negative POCT U UROBILI (test code = 3260) Negative 0.2-1 POCT U BILI (test code = 3261) Negative Negative - Negative POCT U BLD (test code = 3257) Negative Negative - Negative POCT U COLOR (test code = 3266) Light Yellow POCT U APPEAR (test code = 3267) Clear [facility] [id number] 17:51:00 Test Item Value Reference Range Interpretation Comments POCT U SP GRAV (test code = 1.005 mg/dl 1.005-1.025 3255) POCT PH U (test code = 3254) 8 mg/dl 5-8 POCT U LEUK EST (test code = Negative Negative - Negative 3263) POCT U NIT (test code = Negative Negative - Negative 3262) POCT U PROT (test code = Negative Negative - Negative 3259) POCT U GLU (test code = Negative Negative - Negative 3256) POCT U KETONE (test code = Negative Negative - Negative 3258) POCT U UROBILI (test code = Negative 0.2-1 3260) POCT U BILI (test code = Negative Negative - Negative 3261) POCT U BLD (test code = Negative Negative - Negative 3257) POCT U COLOR (test code = Light Yellow 3266) POCT U APPEAR (test code = Clear 3267) [facility] [id number] 19:21:00 Test Item Value Reference Range Interpretation Comments POCT U SP GRAV (test code = 1.000 mg/dl 1.005-1.025 A 3255) POCT PH U (test code = 3254) 7 mg/dl 5-8 POCT U LEUK EST (test code = Neg Negative - Negative 3263) POCT U NIT (test code = 3262) Neg Negative - Negative POCT U PROT (test code = Neg Negative - Negative 3259) POCT U GLU (test code = 3256) Neg Negative - Negative POCT U KETONE (test code = Neg Negative - Negative 3258) POCT U UROBILI (test code = Neg 0.2-1 3260) POCT U BILI (test code = Neg Negative - Negative 3261) POCT U BLD (test code = 3257) Neg Negative - Negative POCT U COLOR (test code = Yellow 3266) POCT U APPEAR (test code = Clear 3267) Lab Interpretation (test code Abnormal = 89390-1) [facility]
[2022-09-27] MEDS ORDERED: MORPHINE 4 MG/ML SYR ONE (15:41)
[2022-09-27] MEDS ORDERED: BUPIVACAINE 0.5% PF 10 ML VIAL ONE (15:41)
[2022-09-27] MEDS ORDERED: ONDANSETRON 4 MG/2 ML VIAL ONE (15:42)
[2022-09-27] MEDS ORDERED: LIDOCAINE 1% 20 ML MDV ONE (15:42)
[2022-09-27] MEDS ORDERED: LORazepam 2 MG/ML VIAL ONE (16:09)
[2022-09-27] MEDS ORDERED: HYDROMORPHONE HCL 1 MG/ML INJ ONE (17:17)
--- NOTE | 2022-09-27 18:15 | EDPHYS ---
Physician Documentation [facility] Name: Rudy Daily Age: 26 yrs Sex: Male : 1995 Arrival Date: 09/27/2022 Time: 14:11 Bed 12 Private MD: ED Physician Stanislaw Eaton HPI: 09/27 14:54 This 26 yrs old Male presents to ER via Ambulatory with complaints of Low Back jmm Pain. 14:54 Is a 26-year-old male with no chronic medical conditions presents to the ER with jmm complaints of swelling to his buttock. Symptoms began about a week ago. Patient has similar episode which resolved on its own. Patient denies fever. Denies drainage.. Historical: - Allergies: 14:28 No Known Allergies; ss - Home Meds: 14:28 None [Active]; ss - PMHx: 14:28 None; ss - Immunization history:: Adult Immunizations up to date. - Social history:: Smoking status: Patient denies any tobacco usage or history of. ROS: 14:54 Constitutional: Negative for fever, chills, and weight loss, Cardiovascular: Negative jmm for chest pain, palpitations, and edema, Respiratory: Negative for shortness of breath, cough, wheezing, and pleuritic chest pain. 14:54 Skin: Positive for erythema, swelling. 14:54 All other systems are negative. Exam: 14:54 Constitutional: This is a well developed, well nourished patient who is awake, alert, jmm and in no acute distress. Head/Face: atraumatic. Eyes: EOMI, no conjunctival erythema appreciated ENT: Moist Mucus Membranes Neck: Trachea midline, Supple Chest/axilla: Normal chest wall appearance and motion. Cardiovascular: Regular rate and rhythm. No edema appreciated Respiratory: Normal respirations, no respiratory distress appreciated Abdomen/GI: Non distended Back: Normal ROM 14:54 Skin: Pilonidal abscess noted to the superior gluteal cleft. 14:54 Neuro: Orientation: is normal, Mentation: is normal, Memory: is normal. 14:54 Psych: Behavior/mood is pleasant, cooperative. Vital Signs: 14:27 BP 108 / 73; Pulse 116; Resp 20; Temp 98.4; Pulse Ox 97% ; Weight 92.99 kg; Height 6 ss ft. 0 in. ; 18:36 BP 115 / 52; Pulse 95; Resp 16; Pulse Ox 97% on R/A; Pain 2/10; ld1 14:27 Body Mass Index 27.80 (92.99 kg, 182.88 cm) ss 18:36 Pain Scale: Adult ld1 Procedures: 17:13 I \T\ D: Incision and drainage was performed for an abscess of the pilonidal cyst Prepped [facility] with Betadine, Anesthetized with 10 ml's 1% Lidocaine. Incised with #11 blade. Drained large amount purulent fluid. Packed with iodoform gauze, Dressing: sterile 4x4 gauze, the patient tolerated the procedure well. MDM: 14:54 Patient medically screened. [facility] 18:25 Differential diagnosis: Pilonidal cyst with abscess. Data reviewed: vital signs, nurses [facility] notes. Counseling: I had a detailed discussion with the patient and/or guardian regarding: the historical points, exam findings, and any diagnostic results supporting the discharge/admit diagnosis, the need for outpatient follow up, to return to the emergency department if symptoms worsen or persist or if there are any questions or concerns that arise at home. ED course: Patient given strict return precautions. Patient understood and agrees to plan of care.. 09/27 14:58 Order name: Gown patient; Complete Time: 15:02 [facility] 09/27 15:28 Order name: Saline Lock; Complete Time: 15:43 [facility] Administered Medications: 15:43 Drug: morphine IVP or IV 4 mg Route: IVP; Infused Over: 4 mins; Site: left hand; cm10 16:04 Follow up: Response: No adverse reaction 10 15:43 Drug: Ondansetron IVP 4 mg Route: IVP; Site: left hand; cm10 16:04 Follow up: Response: No adverse reaction cm10 16:02 Drug: Ativan IVP 1 mg Route: IVP; Site: left hand; cm10 17:17 Follow up: Response: No adverse reaction cm10 16:11 Drug: Lidocaine Infiltration (1 %) 20 ml {Note: Given by PA. Alexis} Volume: 20 ml; cm10 Route: Infiltration; 16:12 Drug: Bupivacaine Infiltration (0.5 %) 20 ml {Note: Given by PA. Alexis} Volume: 10 ml; cm10 Route: Infiltration; 17:17 Drug: HYDROmorphone IVP 1 mg Route: IVP; Site: left hand; cm10 18:34 Follow up: Response: No adverse reaction; Pain is decreased ld1 Disposition Summary: 09/27/22 18:14 Discharge Ordered Location: Home [facility] Condition: Stable [facility] Diagnosis - Pilonidal cyst with abscess [facility] Followup: [facility] - With: Gabriele Melendez MD - When: 2 - 3 days - Reason: Recheck today's complaints, Continuance of care, Re-evaluation by your physician Discharge Instructions: - Discharge Summary Sheet [facility] - How to Take a Sitz Bath [facility] - Pilonidal Cyst Drainage, Care After [facility] Forms: - Medication Reconciliation Form [facility] - Thank You Letter [facility] - Antibiotic Education [facility] - Prescription Opioid Use [facility] - [email or web address] [facility] Prescriptions: - Ultracet 37.5-325 mg Oral Tablet - take 1 tablet by ORAL route every 4 hours As needed - for up to 5 days; do not [facility] exceed 8 tablets per day.; 20 tablet; Refills: 0, Product Selection Permitted - Doxycycline Hyclate 100 mg Oral Tablet - take 1 tablet by ORAL route every 12 hours; 20 tablet; Refills: 0, Product [facility] Selection Permitted - Bactrim DS 800-160 mg Oral Tablet - take 1 tablet by ORAL route every 12 hours for 10 days; 20 tablet; Refills: 0, [facility] Product Selection Permitted Signatures: Alexis Smart PA PA m Esperanza Delacruz RN RN ss Mely Carter RN RN cm10 Mariluz Begum RN ld1
--- NOTE | 2022-09-27 18:15 | ER ---
Nurse's Notes [facility] Name: Rudy Daily Age: 26 yrs Sex: Male : 1995 Arrival Date: 09/27/2022 Time: 14:11 Bed 12 Private MD: Diagnosis: Pilonidal cyst with abscess Presentation: 09/27 14:27 Chief complaint: Patient states: LEFT BUTTOCK ABSCESS x1 WK. Coronavirus screen: At ss this time, the client does not indicate any symptoms associated with coronavirus-19. Ebola Screen: No symptoms or risks identified at this time. Initial Sepsis Screen: Does the patient meet any 2 criteria? No. Patient's initial sepsis screen is negative. Does the patient have a suspected source of infection? No. Patient's initial sepsis screen is negative. Risk Assessment: Do you want to hurt yourself or someone else? Patient reports no desire to harm self or others. Onset of symptoms is unknown. 14:27 Method Of Arrival: Ambulatory ss 14:27 Acuity: CLAUDIA 3 Triage Assessment: 14:28 General: Appears uncomfortable, Behavior is calm, cooperative, appropriate for age. ss Pain: Complains of pain in left gluteus lupe. EENT: No deficits noted. Neuro: No deficits noted. Cardiovascular: No deficits noted. Respiratory: No deficits noted. GI: No deficits noted. : No signs and/or symptoms were reported regarding the genitourinary system. Derm: Abscess located on left gluteus lupe. Musculoskeletal: No deficits noted. Historical: - Allergies: 14:28 No Known Allergies; ss - Home Meds: 14:28 None [Active]; ss - PMHx: 14:28 None; ss - Immunization history:: Adult Immunizations up to date. - Social history:: Smoking status: Patient denies any tobacco usage or history of. Screenin:45 [facility] ED Fall Risk Assessment (Adult) History of falling in the last 3 months, cm10 including since admission No falls in past 3 months (0 pts) Confusion or Disorientation No (0 pts) Intoxicated or Sedated No (0 pts) Impaired Gait Yes (1 pt) Mobility Assist Device Used Yes (1 pt) Altered Elimination No (0 pt) Score/Fall Risk Level 0 - 2 = Low Risk Oriented to surroundings, Maintained a safe environment. Abuse screen: Denies threats or abuse. Denies injuries from another. Nutritional screening: No deficits noted. Tuberculosis screening: No symptoms or risk factors identified. Assessment: 15:44 Reassessment: No changes from previously documented assessment. Patient and/or family cm10 updated on plan of care and expected duration. Pain level reassessed. Patient is alert, oriented x 3, equal unlabored respirations, skin warm/dry/pink. Respiratory: No deficits noted. Airway is patent Respiratory effort is even, unlabored, Respiratory pattern is regular, symmetrical. 15:44 Neuro: No deficits noted. Level of Consciousness is awake, alert, Oriented to person, cm10 place, time, situation. Derm: Abscess located on buttocks. Vital Signs: 14:27 BP 108 / 73; Pulse 116; Resp 20; Temp 98.4; Pulse Ox 97% ; Weight 92.99 kg; Height 6 ss ft. 0 in. ; 18:36 BP 115 / 52; Pulse 95; Resp 16; Pulse Ox 97% on R/A; Pain 2/10; ld1 14:27 Body Mass Index 27.80 (92.99 kg, 182.88 cm) ss 18:36 Pain Scale: Adult ld1 ED Course: 14:16 Patient arrived in ED. im 14:27 Alexis Smart PA is PHCP. [facility] 14:27 Stanislaw Eaton MD is Attending Physician. m 14:28 Triage completed. ss 14:28 Arm band placed on. ss 14:57 Mely Carter, RN is Primary Nurse. cm10 15:44 Inserted saline lock: 20 gauge in left hand, using aseptic technique. cm10 15:45 Patient has correct armband on for positive identification. Placed in gown. Bed in low cm10 position. Call light in reach. 18:14 Gabriele Melendez MD is Referral Physician. [facility] 18:35 No provider procedures requiring assistance completed. IV discontinued, intact, ld1 bleeding controlled, No redness/swelling at site. Pressure dressing applied. Administered Medications: 15:43 Drug: morphine IVP or IV 4 mg Route: IVP; Infused Over: 4 mins; Site: left hand; cm10 16:04 Follow up: Response: No adverse reaction cm10 15:43 Drug: Ondansetron IVP 4 mg Route: IVP; Site: left hand; cm10 16:04 Follow up: Response: No adverse reaction cm10 16:02 Drug: Ativan IVP 1 mg Route: IVP; Site: left hand; cm10 17:17 Follow up: Response: No adverse reaction cm10 16:11 Drug: Lidocaine Infiltration (1 %) 20 ml {Note: Given by PA. Alexis} Volume: 20 ml; cm10 Route: Infiltration; 16:12 Drug: Bupivacaine Infiltration (0.5 %) 20 ml {Note: Given by PA. Alexis} Volume: 10 ml; cm10 Route: Infiltration; 17:17 Drug: HYDROmorphone IVP 1 mg Route: IVP; Site: left hand; cm10 18:34 Follow up: Response: No adverse reaction; Pain is decreased ld1 Medication: 18:36 VIS not applicable for this client. ld1 Outcome: 18:14 Discharge ordered by MD. clark 18:21 Discharged to home ambulatory, with family. cm10 18:21 Condition: good 18:21 Discharge instructions given to patient, friend, Instructed on discharge instructions, the need for admit, medication usage, Demonstrated understanding of instructions, follow-up care, medications, Prescriptions given X 3. 18:36 Patient left the ED. ld1 Signatures: Alexis mSart PA PA jmm Blanchard, Shelby, RN RN Mariluz Begum RN RN ld1 Debra Cooper Clarissa RN RN cm10 Corrections: (The following items were deleted from the chart) 18:36 18:21 Discharge instructions given to patient, friend, Instructed on discharge ld1 instructions, the need for admit, medication usage, Demonstrated understanding of instructions, follow-up care, medications, Prescriptions given X 1, cm10
[2022-09-27 20:01] VITALS: TEMP 98.4; O2SAT 97
[2022-09-27 20:07] VITALS: BP 115/52
== END 2022-09-27 18:36 | disposition home or self-care (01) ==
LOC: ER 14:11
PROC: 0H98XZZ Drainage of Buttock Skin, External Approach (ICD-10-PCS; principal; 2022-09-27)
DX: L05.01 Pilonidal cyst with abscess (principal)
CPT/HCPCS: 11770; J2001; J1170; J2405